=== PATIENT | female | born 1940 | race Caucasian/White ===

== ENCOUNTER 2024-09-23 14:27 | Observation (INO) | payer MEDICARE ==
--- NOTE | 2024-09-23 15:21 | ED ---
General Adult HPI - General Chief complaint: Altered Mental Status Stated complaint: AMS/NV Time Seen by Provider: 09/23/24 15:00 Source: patient, family Mode of arrival: ambulatory Limitations: no limitations - History of Present Illness Initial comments: Patient is a pleasant 84-year female past medical for depression, hypertension presenting with her daughter for altered mental status. Patient has been residing at a nursing facility for the last 4 weeks. Patient's daughters brought her home to visit last night and at 3 and this morning she began having auditory hallucinations. Patient's daughter states the patient has been saying things like the radio was telling her things, while they were driving here she said "God told me to tell you to turn right". She denies SI or HI or HI. No recent adjustments to her medications. No missed dosages of medications. Of note patient has not a history of UTIs and this has not happened to her before however her daughter does state that she is being bathed less then she would have been at home, stating they only give 2 baths a week at the facility she is residing at. Patient did have 1 episode nonbloody nonbilious this morning emesis this morning but otherwise no new symptoms. - Related Data Home Medications Medication Instructions Recorded Confirmed Atorvastatin [Lipitor] 80 mg PO HS@199909/23/24 09/23/24 Cyanocobalamin (Vitamin B-12) 1,000 mcg PO DAILY@79909/23/24 09/23/24 [Vitamin B-12] FLUoxetine HCL [PROzac] 40 mg PO HS@199909/23/24 09/23/24 Levothyroxine Sodium [Synthroid] 100 mcg PO HS@199909/23/24 09/23/24 Losartan [Cozaar] 25 mg PO DAILY@79909/23/24 09/23/24 Nystatin/Triamcinolone Acet 1 applic TOPICAL TID@0900,1400,199909/23/24 09/23/24 [Nystatin-Triamcinolone Cream] QUEtiapine [SEROquel] 25 mg PO HS@199909/23/24 09/23/24 buPROPion XL [Wellbutrin XL] 150 mg PO DAILY@199909/23/24 09/23/24 Previous Rx's Medication Instructions Recorded QUEtiapine [SEROquel] 25 mg PO DAILY PRN #30 tab 09/26/24 amLODIPine [Norvasc] 2.5 mg PO DAILY@0800 #0 09/26/24 Allergies Allergy/AdvReac Type Severity Reaction Status Date / Time No Known Allergies Allergy Verified 09/23/24 17:14 Review of Systems ROS Statement: Those systems with pertinent positive or pertinent negative responses have been documented in the HPI. ROS Other: All systems not noted in ROS Statement are negative. Past Medical History Past Medical History: Hyperlipidemia, Hypertension, Thyroid Disorder Additional Past Medical History / Comment(s): memory issues, History of Any Multi-Drug Resistant Organisms: None Reported Past Surgical History: Hysterectomy Additional Past Surgical History / Comment(s): bilat hip replacement, right shoulder replacement, Past Psychological History: Depression Smoking Status: Never smoker Past Alcohol Use History: None Reported Past Drug Use History: None Reported General Exam - General Exam Comments Initial Comments: PE: CONSTITUTIONAL: No apparent distress, well appearing SKIN: Warm, dry, no jaundice, hives or petechiae EYES: Pupils are equally round, extraocular movements intact without nystagmus, clear conjunctiva, non-icteric sclera HENT: Normocephalic, atraumatic, moist mucus membranes, oropharynx clear without exudates NECK: , Full range of motion, normal appearance PULMONARY: Clear to auscultation without wheezes, rhonchi, or rales, normal excursion, no accessory muscle use and no stridor CARDIOVASCULAR: Regular rate, rhythm, normal S1 and S2. No appreciated murmurs, rubs or gallops. Strong radial pulses with intact distal perfusion. No lower extremity edema GASTROINTESTINAL: Soft, active bowel sounds throughout, non-tender, non-dist ended, no palpable masses, no rebound or guarding. No hepatosplenomegaly GENITOURINARY: MUSCULOSKELETAL: Extremities have no gross deformity, no edema, redness, or swelling. No calf swelling NEUROLOGIC:_a/o x 3-knows place, person, president unsure of exact date, GCS 15, normal mentation and speech. Moves all extremities x 4 without motor or sensory deficit PSYCHIATRIC:[ _pleasant mood and affect, thought process is overall clear and linear, does not appear to be responding to internal stimuli Limitations: no limitations Course Vital Signs 09/23/24 09/23/24 09/23/24 14:33 15:01 16:00 Temperature 97.6 F Pulse Rate 79 80 86 Respiratory 18 20 16 Rate Blood Pressure 126/73 134/82 130/68 O2 Sat by Pulse 98 97 98 Oximetry 09/23/24 09/23/24 17:00 18:00 Temperature Pulse Rate 70 75 Respiratory 20 20 Rate Blood Pressure 134/82 134/82 O2 Sat by Pulse 98 96 Oximetry EKG Findings - EKG Comments: EKG Findings:: Sinus rhythm, rate 70 bpm, QT/QTc 422/455 ms, normal axis, mild artifact present somewhat limiting interpretation though no clear ST elevations or depressions, no ischemic changes Medical Decision Making - Medical Decision Making Was pt. sent in by a medical professional or institution (, PA, COSTUMER, urgent care, hospital, or snf...) When possible be specific @ -No Did you speak to anyone other than the patient for history (EMS, parent, family, police, friend...)? What history was obtained from this source @ -I spoke with patient's daughter who assisted in providing history, states that patient at 3 AM began having auditory hallucinations Did you review nursing and triage notes (agree or disagree)? Why? @ -I reviewed and agree with nursing and triage notes Differential Diagnosis (chest pain, altered mental status, abdominal pain women, abdominal pain men, vaginal bleeding, weakness, fever, dyspnea, syncope, headache, dizziness, GI bleed, back pain, seizure, CVA, palpatations, mental health, musculoskeletal)? Differential Altered Mental Status: Hypoglycemia, DKA, hypercapnia, ETOH, overdose, CO poisoning, trauma, myxedema coma, HTN encephalopathy, infection, encephalitis, psychosis, intercranial hemorrhage, hepatic encephalopathy, meningitis, CVA, this is not meant to be an all-inclusive list EKG interpreted by me (3pts min.). @ -As above X-rays interpreted by me (1pt min.). @. I see no evidence of pulmonary consolidations, or findings consistent with infectious process radiologist describes findings consistent with COPD and borderline heart size with possible underlying pulmonary arterial hypertension but no definite acute process CT interpreted by me (1pt min.). @Personally reviewed CT brain I see no evidence of hemorrhage or mass effect, I agree with radiologist interpretation-CT was read by radiologist as no acute bleed or mass effect moderate to marked senescent changes U/S interpreted by me (1pt. min.). @ -None done What testing was considered but not performed or refused? (CT, X-rays, U/S, labs)? Why? @ -None What meds were considered but not given or refused? Why? @ -None Did you discuss the management of the patient with other professionals (professionals i.e. , PA, COSTUMER, lab, RT, psych nurse, elementary school social worker, vessel ordinary seaman, teacher, ground nuclear weapons assembly officer, disease case manager rn)? Give summary @ -No Was smoking cessation discussed for >3mins.? @ -No Was critical care preformed (if so, how long)? @ -No Were there social determinants of health that impacted care today? How? (Homelessness, low income, unemployed, alcoholism, drug addiction, transportation, low edu. Level, literacy, decrease access to med. care, penitentiary, rehab)? @ -No Was there de-escalation of care discussed even if they declined (Discuss DNR or withdrawal of care, Hospice)? @ -No What co-morbidities impacted this encounter? (DM, HTN, Smoking, COPD, CAD, Cancer, CVA, ARF, Chemo, Hep., AIDS, mental health diagnosis, sleep apnea, mor bid obesity)? @ -None Was patient admitted / discharged? Hospital course, mention meds given and rou te, prescriptions, significant lab abnormalities, going to OR and other pertinent info. @ Admission-This is a pleasant 84-year female past with history hypertension, thyroid disorder, depression presenting today for new onset auditory hallucinations. Assessment patient is well-appearing, no acute distress pleasant awake and alert. She is borderline febrile with oral temp 99 degrees. Had 1 episode emesis this morning. Physical exam is overall benign no focal neurologic deficits. Discussed with patient and daughter plan for broad workup including CT brain, urinalysis comprehensive labs. They are agreeable with plan of care. Labs and imaging reviewed. Grossly within normal limits. Abnormal values not concerning for acute pathology related to presenting complaint. Updated pt and daughter to findings. Pt is asking myself and her daughter to leave the room because God is stilling her she needs to throw up however she cannot with other people in the room. She holds an emesis bag in front of her. Discussed with daughter plan for admission due to persistent hallucinations with unknown cause and will administer seroquel to prevent escalation of anxiety or hallucinations. Daughter agreeable with POC. Case discussed with JAIME Arnold, who kindly accepted pt for admission. Undiagnosed new problem with uncertain prognosis? @ -No Drug Therapy requiring intensive monitoring for toxicity (Heparin, Nitro, Insulin, Cardizem)? @ -No Were any procedures done? @ -No Diagnosis/symptom? @Auditory hallucinations Acute, or Chronic, or Acute on Chronic? @Acute Uncomplicated (without systemic symptoms) or Complicated (systemic symptoms)? @ -Complicated Side effects of treatment? @ -No Exacerbation, Progression, or Severe Exacerbation? @ -No Poses a threat to life or bodily function? How? (Chest pain, [place], [place], pneumonia, PE, COPD, DKA, ARF, appy, cholecystitis, CVA, Diverticulitis, Homicidal, Suicidal, threat to staff... and all critical care pts) @Potentially, if left untreated could progress to worsening symptoms, agitation - Lab Data Result diagrams: 09/23/24 15:15 09/23/24 15:15 Lab Results 09/23/24 09/23/24 09/23/24 Range/Units 15:15 15:15 15:15 WBC 9.09 (4.50-10.00) 10*3/uL RBC 4.02 L (4.10-5.20) 10*6/uL Hgb 12.7 (12.0-15.0) g/dL Hct 37.3 (37.2-46.3) % MCV 92.8 (80.0-97.0) fL MCH 31.6 (27.0-32.0) pg MCHC 34.0 (32.0-37.0) g/dL Plt Count 272 (140-440) 10*3/uL MPV 9.6 (9.5-12.2) fL Immature Gran % (Auto) 0.4 % Neutrophils % 70.0 % Lymphocytes % 22.8 % Monocytes % 5.3 % Eosinophils % 0.6 % Basophils % 0.9 % Immature Gran # 0.04 (0.00-0.04) 10*3/uL Neutrophils # 6.37 (1.80-7.70) 10*3/uL Lymphocytes # 2.07 (0.90-5.00) 10*3/uL Monocytes # 0.48 (0.20-1.00) 10*3/uL Eosinophils # 0.05 (0.04-0.35) 10*3/uL Basophils # 0.08 (0.00-0.10) 10*3/uL PT 10.6 (10.0-12.5) sec INR 0.9 (<1.2) APTT 23.0 (22.0-30.0) sec Sodium 137 (137-145) mmol/L Potassium 4.0 (3.5-5.1) mmol/L Chloride 102 (98-107) mmol/L Carbon Dioxide 24 (22-30) mmol/L Anion Gap 11 mmol/L BUN 16 (7-17) mg/dL Creatinine 0.98 (0.52-1.04) mg/dL Est GFR (CKD-EPI)AfAm 60 (>60 ml/min/1.73 sqM) Est GFR (CKD-EPI)NonAf 52 (>60 ml/min/1.73 sqM) Glucose 139 H (74-99) mg/dL Calcium 9.9 (8.4-10.2) mg/dL Total Bilirubin 1.6 H (0.2-1.3) mg/dL AST 22 (14-36) U/L ALT 15 (4-34) U/L Alkaline Phosphatase 107 (38-126) U/L Troponin I (0.000-0.034) ng/mL Total Protein 6.6 (6.3-8.2) g/dL Albumin 3.9 (3.5-5.0) g/dL TSH 0.417 L (0.465-4.680) mIU/L Free T4 1.36 (0.78-2.19) ng/dL Urine Color Urine Appearance (Clear) Urine pH (5.0-8.0) Ur Specific [place] (1.001-1.035) Urine Protein (Negative) Urine Glucose (UA) (Negative) Urine Ketones (Negative) Urine Blood (Negative) Urine Nitrite (Negative) Urine Bilirubin (Negative) Urine Urobilinogen (<2.0) mg/dL Ur Leukocyte Esterase (Negative) 09/23/24 09/23/24 Range/Units 15:15 15:15 WBC (4.50-10.00) 10*3/uL RBC (4.10-5.20) 10*6/uL Hgb (12.0-15.0) g/dL Hct (37.2-46.3) % MCV (80.0-97.0) fL MCH (27.0-32.0) pg MCHC (32.0-37.0) g/dL Plt Count (140-440) 10*3/uL MPV (9.5-12.2) fL Immature Gran % (Auto) % Neutrophils % % Lymphocytes % % Monocytes % % Eosinophils % % Basophils % % Immature Gran # (0.00-0.04) 10*3/uL Neutrophils # (1.80-7.70) 10*3/uL Lymphocytes # (0.90-5.00) 10*3/uL Monocytes # (0.20-1.00) 10*3/uL Eosinophils # (0.04-0.35) 10*3/uL Basophils # (0.00-0.10) 10*3/uL PT (10.0-12.5) sec INR (<1.2) APTT (22.0-30.0) sec Sodium (137-145) mmol/L Potassium (3.5-5.1) mmol/L Chloride (98-107) mmol/L Carbon Dioxide (22-30) mmol/L Anion Gap mmol/L BUN (7-17) mg/dL Creatinine (0.52-1.04) mg/dL Est GFR (CKD-EPI)AfAm (>60 ml/min/1.73 sqM) Est GFR (CKD-EPI)NonAf (>60 ml/min/1.73 sqM) Glucose (74-99) mg/dL Calcium (8.4-10.2) mg/dL Total Bilirubin (0.2-1.3) mg/dL AST (14-36) U/L ALT (4-34) U/L Alkaline Phosphatase (38-126) U/L Troponin I <0.012 (0.000-0.034) ng/mL Total Protein (6.3-8.2) g/dL Albumin (3.5-5.0) g/dL TSH (0.465-4.680) mIU/L Free T4 (0.78-2.19) ng/dL Urine Color Yellow Urine Appearance Clear (Clear) Urine pH 7.0 (5.0-8.0) Ur Specific [place] 1.024 (1.001-1.035) Urine Protein Negative (Negative) Urine Glucose (UA) Negative (Negative) Urine Ketones Negative (Negative) Urine Blood Negative (Negative) Urine Nitrite Negative (Negative) Urine Bilirubin Negative (Negative) Urine Urobilinogen 3.0 (<2.0) mg/dL Ur Leukocyte Esterase Negative (Negative) Disposition Clinical Impression: Auditory hallucinations Disposition: ADMITTED IP TO THIS HOSP Condition: Stable
[2024-09-23 15:41] LABS: Basophils # (A) 0.08 10*3/uL (0.00-0.10); Basophils % (A) 0.9 %; Eosinophils # (A) 0.05 10*3/uL (0.04-0.35); Eosinophils % (A) 0.6 %; HCT 37.3 % (37.2-46.3); HGB 12.7 g/dL (12.0-15.0); Lymphocytes # (A) 2.07 10*3/uL (0.90-5.00); Lymphocytes % (A) 22.8 %; MCH 31.6 pg (27.0-32.0); MCV 92.8 fL (80.0-97.0); Mean Platelet Volume 9.6 fL (9.5-12.2); Monocytes # (A) 0.48 10*3/uL (0.20-1.00); Monocytes % (A) 5.3 %; Neutrophils # (A) 6.37 10*3/uL (1.80-7.70); Platelet Count 272 10*3/uL (140-440); RBC 4.02 10*6/uL (4.10-5.20); RDW 12.8 % (11.5-14.5); WBC 9.09 10*3/uL (4.50-10.00)
[2024-09-23 16:02] LABS: ALT 15 U/L (4-34); AST 22 U/L (14-36); African American GFR (CKD) 60 (>60 ml/min/1.73 sqM); Albumin 3.9 g/dL (3.5-5.0); Alkaline Phosphatase 107 U/L (38-126); Anion Gap 11 mmol/L; Blood Urea Nitrogen 16 mg/dL (7-17); Calcium 9.9 mg/dL (8.4-10.2); Carbon Dioxide 24 mmol/L (22-30); Chloride 102 mmol/L (98-107); Glucose 139 mg/dL (74-99); Non-African American GFR(CKD) 52 (>60 ml/min/1.73 sqM); Sodium 137 mmol/L (137-145); Total Bilirubin 1.6 mg/dL (0.2-1.3); Total Protein 6.6 g/dL (6.3-8.2)
[2024-09-23 16:07] LABS: INR 0.9 (<1.2); Prothrombin Time 10.6 sec (10.0-12.5)
[2024-09-23 16:12] LABS: Appearance,Urine Clear (Clear); Bilirubin,Urine Negative (Negative); Blood,Urine Negative (Negative); Color,Urine Yellow; Glucose,Urine (UA) Negative (Negative); Ketones,Urine Negative (Negative); Leukocyte Esterase,Urine Negative (Negative); Nitrite,Urine Negative (Negative); Protein,Urine Negative (Negative); Specific Gravity,Urine 1.024 (1.001-1.035)
--- NOTE | 2024-09-23 16:21 | CT ---
EXAMINATION TYPE: CT brain wo con DATE OF EXAM: 09/23/2024 COMPARISON: None CLINICAL INDICATION: Female, 84 years old with history of new hallucinations; PHH, New hallucinations CT DLP: 1174.4 mGycm Automated exposure control for dose reduction was used. Findings: The ventricles, basal cisterns and sulci over the convexities are moderately enlarged consistent with moderate generalized atrophy. There is marked decreased density in the periventricular white matter consistent with marked chronic ischemic white matter demyelination. There is no mass effect or shift of midline structures. There is mild basal ganglial calcification. There is no acute intra or extra-axial hemorrhage. The posterior fossa including the brainstem, fourth ventricle and cerebellar pontine angles appear no rmal. Intraorbital contents appear normal and symmetric. Visualized paranasal sinuses and mastoid air cells are well aerated. The calvarium is intact. IMPRESSION: 1. No acute bleed or mass effect. 2. Moderate to marked senescent changes as described above. [facility], Workstation: [facility] 09/23/2024 4:19 PM
--- NOTE | 2024-09-23 16:33 | XR ---
EXAMINATION TYPE: XR chest 2V DATE OF EXAM: 09/23/2024 4:15 PM COMPARISON: None CLINICAL INDICATION: Female, 84 years old with history of altered mental status, confusion TECHNIQUE: AP and lateral views FINDINGS: Partially visualized reversible right total shoulder arthroplasty. Dextroconvex scoliosis upper third thoracic spine. Heart borderline in size. Atherosclerotic arch calcifications. Large appearance to t he main right and left pulmonary arteries on the lateral view. Hyperinflation. No consolidation or pl eural effusion. Degenerative change left shoulder. IMPRESSION: COPD. Borderline heart size. Possible underlying pulmonary arterial hypertension. Otherwise, no defin ite acute process. [facility], Workstation: [facility], 09/23/2024 4:31 PM
[2024-09-23 16:59] LABS: T4, Free (Free Thyroxine) 1.36 ng/dL (0.78-2.19)
[2024-09-23] MEDS: QUEtiapine 25 MG TAB PO STA ×2 (17:11→18:13)
[2024-09-23] MEDS ORDERED: ALPRAZolam 0.25 MG TAB PO PRN (17:29)
[2024-09-23] MEDS ORDERED: NALOXONE 0.4 MG/ML 1 ML VIAL IV PRN (17:29)
[2024-09-23] MEDS ORDERED: ACETAMINOPHEN TAB 325 MG TAB PO PRN (17:29)
[2024-09-23] MEDS: FAMOTIDINE 20 MG TAB PO SCH (21:45)
[2024-09-24] MEDS ORDERED: QUEtiapine 25 MG TAB PO PRN (13:10)
--- NOTE | 2024-09-24 13:42 | P.HPIM ---
History of Present Illness Patient is an 84-year-old female brought in because of auditory hallucinations seeing things that are not there. Patient was recently moved [facility] home. Patient does have history of advanced dementia probably vascular dementia. Patient was started on Seroquel here patient is alert oriented x 1 which appears to be her baseline but having hallucinations. Patient was evaluated by psychiatry and psychiatry added daytime Seroquel as well and recommending monitoring overnight to watch for any more hallucinations. Meantime we will get physical therapy Occupational Therapy evaluation had a lengthy discussion with family members that his granddaughter at bedside. CT of the head was reviewed no evidence of acute stroke. REVIEW OF SYSTEMS: All other systems are negative except those mentioned in the HPI PHYSICAL EXAMINATION: GENERAL: The patient is alert and oriented x3, not in any acute distress. Well developed, well nourished. HEENT: Pupils are round and equally reacting to light. EOMI. No scleral icterus. No conjunctival pallor. Normocephalic, atraumatic. No pharyngeal erythema. No thyromegaly. CARDIOVASCULAR: S1 and S2 present. No murmurs, rubs, or gallops. PULMONARY: Chest is clear to auscultation, no wheezing or crackles. ABDOMEN: Soft, nontender, nondistended, normoactive bowel sounds. No palpable organomegaly. MUSCULOSKELETAL: No joint swelling or deformity. EXTREMITIES: No cyanosis, clubbing, or pedal edema. NEUROLOGICAL: Gross neurological examination did not reveal any focal deficits. SKIN: No rashes. Assessment and plan -Advanced dementia with episodes of delirium secondary to unfamiliar environment. Seroquel as mentioned above will be monitored overnight patient probably can be discharged from [facility]. - Hyperlipidemia - Hypertension - Hypothyroidism - Depression for above-mentioned chronic medical problems patient was resumed on appropriate home medications DVT prophylaxis: Lovenox Past Medical History Past Medical History: Hyperlipidemia, Hypertension, Thyroid Disorder Additional Past Medical History / Comment(s): memory issues, History of Any Multi-Drug Resistant Organisms: None Reported Past Surgical History: Hysterectomy Additional Past Surgical History / Comment(s): bilat hip replacement, right shoulder replacement, Past Anesthesia/Blood Transfusion Reactions: No Reported Reaction Past Psychological History: Depression Smoking Status: Never smoker Past Alcohol Use History: None Reported Past Drug Use History: None Reported Medications and Allergies Home Medications Medication Instructions Recorded Confirmed Type Atorvastatin [Lipitor] 80 mg PO HS@199909/23/24 09/23/24 History Cyanocobalamin (Vitamin B-12) 1,000 mcg PO DAILY@0809/23/24 09/23/24 History [Vitamin B-12] FLUoxetine HCL [PROzac] 40 mg PO HS@199909/23/24 09/23/24 History Levothyroxine Sodium [Synthroid] 100 mcg PO HS@199909/23/24 09/23/24 History Losartan [Cozaar] 25 mg PO DAILY@79909/23/24 09/23/24 History Nystatin/Triamcinolone Acet 1 applic TOPICAL TID@0900,1400,199909/23/24 09/23/24 History [Nystatin-Triamcinolone Cream] QUEtiapine [SEROquel] 25 mg PO HS@199909/23/24 09/23/24 History amLODIPine [Norvasc] 5 mg PO DAILY@79909/23/24 09/23/24 History buPROPion XL [Wellbutrin XL] 150 mg PO DAILY@199909/23/24 09/23/24 History Allergies Allergy/AdvReac Type Severity Reaction Status Date / Time No Known Allergies Allergy Verified 09/23/24 17:14 Physical Exam Vitals: Vital Signs Temp Pulse Pulse Resp BP BP Pulse Ox 09/24/24 07:00 98.7 F 75 16 154/63 98 09/24/24 02:07 72 16 09/24/24 00:43 97.3 F L 72 16 107/68 96 09/23/24 21:11 98.4 F 72 18 150/56 96 09/23/24 21:03 98.3 F 87 20 147/76 97 09/23/24 18:00 75 20 134/82 96 09/23/24 17:00 70 20 134/82 98 09/23/24 16:00 86 16 130/68 98 09/23/24 15:01 80 20 134/82 97 09/23/24 14:33 97.6 F 79 18 126/73 98 Intake and Output 09/23/24 09/24/24 09/24/24 22:59 06:59 14:59 Intake Total 236 Balance 236 Intake: Oral 236 Other: Voiding Method Toilet Toilet # Voids 1 1 Weight 63.503 kg Results CBC & Chem 7: 09/23/24 15:15 09/23/24 15:15 Labs: Abnormal Lab Results - Last 24 Hours (Table) 09/23/24 09/23/24 Range/Units 15:15 15:15 RBC 4.02 L (4.10-5.20) 10*6/uL Glucose 139 H (74-99) mg/dL Total Bilirubin 1.6 H (0.2-1.3) mg/dL TSH 0.417 L (0.465-4.680) mIU/L Thrombosis Risk Factor Assmnt - Choose All That Apply Any of the Below Risk Factors Present?: Yes Each Factor Represents 1 point: Abnormal pulmonary function (COPD) Other Risk Factors: Yes Each Risk Factor Represents 3 Points: Age 75 years or older Other congenital or acquired thrombophilia - If yes, enter type in comment: No Thrombosis Risk Factor Assessment Total Risk Factor Score: 4 Thrombosis Risk Factor Assessment Level: Moderate Risk
--- NOTE | 2024-09-24 13:42 | P.CN ---
Psychiatric Consult - . Consult date: 09/24/24 Consult:: 09/24/24 12:36 IDENTIFYING DATA: This patient is a 84-year-old female, currently living in adult foster care, she is she has 6 kids, collect Social Security REASON FOR REFERRAL: Psychiatry was consulted for "auditory hallucinations" HISTORY OF PRESENT ILLNESS: The patient presented to the hospital initially on 09/23 to the ER for altered mental status, apparently patient has been in a new home for the past 4 weeks or so. Apparently patient has been steadily declining in terms of her symptoms and apparently hearing voices and following commands. Patient had a CT scan which did not show any acute changes did show possibility of chronic ischemic changes. Urine analysis was negative. Allergist/Immunologist was able to speak with patient's daughter over the phone Darlene. She claims that patient has been reportedly hearing "music" for the past month or so. Claims that she has been hallucinating, talking to a wall and also being told that she is following God's commands. She claims that she has been given directions by. States that her sleep has been on and off recently, appetite has been fair. She gave additional history of Pat patient's past psychiatric history and social history as well. Allergist/Immunologist evaluated patient at the bedside, she was fairly pleasant and attempts to cooperate. She knew her name she knew that she was in the hospital however did not know where. She did not know today's date or the year. She denied any severe depression or anxiety at this time. She had poor recollection of the events that had occurred leading to hospitalization. Her concentration was fair was following most commands fairly pleasant during interaction. He did claim that she may have heard voices and saw things however was not able to describe them at this time. Claims that her sleep has been fair appetite is been fair. At this time patient denies any suicidal or homical ideations, intent or plan. she denies any paranoia or delusions. Patients admits to using no recreational drugs or substances PAST PSYCHIATRIC HISTORY: Patient has a a history of neurocognitive disorder/dementia, depression/anxiety. Patient was recently started on Seroquel in the ER, according to patient's report she is on a low-dose of Wellbutrin and Prozac as well. Patient denies any previous psychiatric hospitalizations. Patient denies any psychiatric outpatient follow-up. Patient denies any history of suicide attempts in the past. Past Medical History: Hyperlipidemia, Hypertension, Thyroid Disorder Additional Past Medical History / Comment(s): memory issues, History of Any Multi-Drug Resistant Organisms: None Reported Past Surgical History: Hysterectomy Additional Past Surgical History / Comment(s): bilat hip replacement, right shoulder replacement, Past Psychological History: Depression Smoking Status: Never smoker Past Alcohol Use History: None Reported Past Drug Use History: None Reported ALLERGIES: as per EMR. CHEMICAL DEPENDENCY HISTORY: as per HPI. FAMILY PSYCHIATRIC/SUBSTANCE USE HISTORY: Patient father and aunt apparently abused alcohol SOCIAL HISTORY: Patient was born and raised in [facility] in [facility]. Patient then moved to the , was now currently . She has 6 kids. She currently lives in a assisted living, for the past month. Collect Social Security. Denies any legal history. 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 MENTAL STATUS EXAM: General Appearance: Patient appears to be has short hair, stated age is alert, pleasant, and attempts to be cooperative. Patient appears to have fair hygiene and grooming wearing hospital gown with fair eye contact. Behavior: Patient is calmly lying in bed without any agitated behavior. Attempts to cooperate Speech: Patient's speech is fluent and nonpressured. Mood/Affect: Patient reports their mood is "ok", affect is congruent Suicidality/Homicidality: Patient denies having any suicidal or homicidal ideation intent or plan. Perceptions: Patient denies any current visual hallucinations and denies any auditory hallucinations Though content/process: There is no evidence of any delusional thought content, not reporting any paranoia. Fairly concrete, poor historian Memory and concentration: AOX1-2, she knows that she is in a hospital, does not know where, she knows her name, knows her date of but not her age. She does not know today's date or year. Cannot spell "WORLD" backwards Judgment and insight: Chronically limited IMPRESSIONS: Delirium, unknown etiology Major neurocognitive disorder PLAN: -At this time patient DOES NOT meet criteria for inpatient psychiatric admissio n. -Patient DOES NOT have decision making capacity at this time and is unable to reason through and communicate/appreciate the risks, benefits and alternatives to treatment. -Delirium precautions recommended with patient including - avoiding use of narcotics and CONSTRUCTION [employer]GER sedatives, limit anticholinergic medications when possible, frequent re-orientation, minimize use of restraints, open window shades during the day and close them at night -Would recommend the following medication changes/additions: Please avoid benzodiazepines as this will further increase patient's confusion/delirium. Can continue with scheduled Seroquel 25 mg nightly for delirium/psychosis/sleep, added 25 mg daily as needed dose for agitation/psychosis. Will also get a 12.5 mg dose now -coke worker to provide patient with outpatient mental health/psychiatry resources for appropriate follow up upon discharge -Communicated plan to patient's nurse -Psychiatry will sign off at this time -Please contact with any questions. 09/24/24 13:26 09/24/24 13:34 09/24/24 13:41
[2024-09-24] MEDS: NYSTAT-TRIAMCIN 100,000-0.1 UNIT/GM-% CREAM 30 GM TUBE TOPICAL SCH (14:09)
[2024-09-24] MEDS: QUEtiapine 25 MG TAB PO STA (14:09)
[2024-09-24] MEDS: amLODIPine 5 MG TAB PO SCH (14:10)
[2024-09-24] MEDS: ENOXAPARIN 40 MG/0.4 ML SYRINGE SQ SCH (14:10)
[2024-09-24] MEDS: QUEtiapine 25 MG TAB PO SCH (20:37)
[2024-09-24] MEDS: ATORVASTATIN 80 MG TAB PO SCH (20:37)
[2024-09-24] MEDS: LEVOTHYROXINE 100 MCG TAB PO SCH (20:37)
[2024-09-25] MEDS: CYANOCOBALAMIN 500 MCG TAB PO SCH (10:10)
[2024-09-25] MEDS: FLUoxetine HCL 20 MG CAP PO SCH (10:10)
[2024-09-25] MEDS: LOSARTAN 25 MG TAB PO SCH (10:10)
[2024-09-26 07:05] VITALS: BP 116/71; PULSE 73; RESP 15; TEMP 97.7
--- NOTE | 2024-09-26 11:19 | P.DS ---
Providers Date of admission: 09/23/24 17:29 Attending physician: Hector Mabry Consults: 09/23/24 17:29 Consult Physician Routine Consulting Provider: Psychiatry - [facility] Psychiatry Consult Reason/Comments: auditory hallucinations Do you want consulting provider notified?: Yes, Notify in am Primary care physician: Physician Nonstaff Hospital Course: Patient is an 84-year-old female brought in because of auditory hallucinations seeing things that are not there. Patient was recently moved [facility] home. Patient does have history of advanced dementia probably vascular dementia. Patient was started on Seroquel here patient is alert oriented x 1 which appears to be her baseline but having hallucinations. Patient was evaluated by psychiatry and psychiatry added daytime Seroquel as well and recommending monitoring overnight to watch for any more hallucinations. Meantime we will get physical therapy Occupational Therapy evaluation had a lengthy discussion with family members that his granddaughter at bedside. CT of the head was reviewed no evidence of acute stroke. 09/26/2024 Patient does not have any more hallucinations at this time. Patient is still confused but this is her baseline patient has advanced dementia. Patient is otherwise clinically doing well her blood pressure is slightly on the lower side because of him cutting down the dose of amlodipine to 2.5 mg and patient will be discharged today to follow-up with PCP as an outpatient. Daytime Seroquel was added because of her hallucinations by psychiatry. Text PHYSICAL EXAMINATION: GENERAL: The patient is alert and oriented x3, not in any acute distress. Well developed, well nourished. HEENT: Pupils are round and equally reacting to light. EOMI. No scleral icterus. No conjunctival pallor. Normocephalic, atraumatic. No pharyngeal erythema. No thyromegaly. CARDIOVASCULAR: S1 and S2 present. No murmurs, rubs, or gallops. PULMONARY: Chest is clear to auscultation, no wheezing or crackles. ABDOMEN: Soft, nontender, nondistended, normoactive bowel sounds. No palpable organomegaly. MUSCULOSKELETAL: No joint swelling or deformity. EXTREMITIES: No cyanosis, clubbing, or pedal edema. NEUROLOGICAL: Gross neurological examination did not reveal any focal deficits. SKIN: No rashes. Assessment and plan -Advanced dementia with episodes of delirium secondary to unfamiliar environment. Seroquel as mentioned above will be monitored overnight patient probably can be discharged from [facility]. - Hyperlipidemia - Hypertension - Hypothyroidism - Depression for above-mentioned chronic medical problems patient was resumed on appropriate home medications Patient Condition at Discharge: Stable Plan - Discharge Summary Discharge Rx Participant: No New Discharge Prescriptions: New QUEtiapine [SEROquel] 25 mg PO DAILY PRN #30 tab PRN Reason: agitation/psychosis Continue buPROPion XL [Wellbutrin XL] 150 mg PO DAILY@1999 FLUoxetine HCL [PROzac] 40 mg PO HS@1999 Atorvastatin [Lipitor] 80 mg PO HS@1999 Nystatin/Triamcinolone Acet [Nystatin-Triamcinolone Cream] 1 applic TOPICAL TID@0900,1400,1999 QUEtiapine [SEROquel] 25 mg PO HS@1999 Cyanocobalamin (Vitamin B-12) [Vitamin B-12] 1,000 mcg PO DAILY@0800 Losartan [Cozaar] 25 mg PO DAILY@0800 Levothyroxine Sodium [Synthroid] 100 mcg PO HS@1999 Changed amLODIPine [Norvasc] 2.5 mg PO DAILY@0800 #0 Discharge Medication List Atorvastatin [Lipitor] 80 mg PO HS@199909/23/24 [History] Cyanocobalamin (Vitamin B-12) [Vitamin B-12] 1,000 mcg PO DAILY@0800 09/23/24 [History] FLUoxetine HCL [PROzac] 40 mg PO HS@199909/23/24 [History] Levothyroxine Sodium [Synthroid] 100 mcg PO HS@199909/23/24 [History] Losartan [Cozaar] 25 mg PO DAILY@0800 09/23/24 [History] Nystatin/Triamcinolone Acet [Nystatin-Triamcinolone Cream] 1 applic TOPICAL TI D@0900,1400,199909/23/24 [History] QUEtiapine [SEROquel] 25 mg PO HS@199909/23/24 [History] buPROPion XL [Wellbutrin XL] 150 mg PO DAILY@199909/23/24 [History] QUEtiapine [SEROquel] 25 mg PO DAILY PRN #30 tab 09/26/24 [Rx] amLODIPine [Norvasc] 2.5 mg PO DAILY@0800 #0 09/26/24 [Rx] Follow up Appointment(s)/Referral(s): Nonstaff,Physician [Primary Care Provider] - 1-2 days Discharge Disposition: HOME SELF-CARE
== END 2024-09-26 13:55 | disposition home or self-care (01) ==
LOC: EC 14:27 → 6NMEDSUR 17:29
PROVIDERS: ADMIT Hospitalist; ATTEND Hospitalist
DX: F01.52 Vascular dementia, unspecified severity, with psychotic disturbance (principal); F01.53 Vascular dementia, unspecified severity, with mood disturbance; F32.A Depression, unspecified; F41.9 Anxiety disorder, unspecified; E03.9 Hypothyroidism, unspecified; I10 Essential (primary) hypertension; E78.5 Hyperlipidemia, unspecified; Z79.890 Hormone replacement therapy; Z79.899 Other long term (current) drug therapy
CPT/HCPCS: 96372 ×3; 99285; 36415; 93005; 84439; 80053; 84443; 84484; 85025; 85610; 85730; 81003; 87040; 71046; 70450; G0378 ×4; J1650 ×3